=== PATIENT | female | born 1985 | race Caucasian/White ===

== ENCOUNTER → 2019-09-12 16:32 | Outpatient (CLI) | payer OTHER, SELFPAY | PROVIDERS: Visit Provider Physician Assistant | DX: R30.0 Dysuria (principal) | CPT/HCPCS: 87077; 87086; 87186 ==

== ENCOUNTER 2020-11-17 13:53 | Emergency (ER) | payer OTHER, SELFPAY ==
[2020-11-17] VITALS (8 sets, daily range): BP systolic 111–125; BP diastolic 72–81; PULSE 81–103; RESP 16–22; TEMP 36.5; O2SAT 99–100
--- NOTE | 2020-11-17 16:34 | DI.US.S_ITS ---
PROCEDURE: US PERIPH VENOUS LOW EXTREM LT INDICATIONS: NUMBNESS TECHNIQUE: Real-time imaging, as well as color and pulse Doppler interrogation, were performed of the lower extremity deep veins from the inguinal ligament to the popliteal fossa. COMPARISON: None. FINDINGS: The common femoral, femoral and popliteal veins are normally compressible, and free of intraluminal thrombus. Color and pulse Doppler demonstrate normal phasic intraluminal flow. There is normal augmentation response to distal compression maneuver. No soft tissue abnormalities identified in the area of numbness. IMPRESSION: Negative for deep venous thrombosis of the left lower extremity. No soft tissue abnormalities identified in the area of numbness. Dictated by: Corona Junior M.D. on 11/17/2020 at 18:03 Approved by: Corona Junior M.D. on 11/17/2020 at 18:04
--- NOTE | 2020-11-17 16:36 | DI.RAD.S_ITS ---
PROCEDURE: XR TIBIA FIBULA LT 2V INDICATIONS: LE numbness TECHNIQUE: 2 views of the tibia and fibula were acquired. COMPARISON: None. FINDINGS: Bones: No fractures or dislocations. No suspicious bony lesions. Soft tissues: No suspicious soft tissue calcifications or masses. IMPRESSION: Left tibia/fibula without acute radiographic abnormalities. Dictated by: Corona Junior M.D. on 11/17/2020 at 17:23 Approved by: Corona Junior M.D. on 11/17/2020 at 17:23
--- NOTE | 2020-11-17 16:36 | DI.RAD.S_ITS ---
PROCEDURE: XR ANKLE LT MIN 3V INDICATIONS: Le numbness TECHNIQUE: 3 views of the ankle were acquired. COMPARISON: None. FINDINGS: Bones: No fractures or dislocations. Ankle mortise is normally aligned. No suspicious bony lesions. Soft tissues: No tibiotalar joint effusion. Achilles tendon appears normal. IMPRESSION: Left ankle without acute radiographic abnormalities. Dictated by: Corona Junior M.D. on 11/17/2020 at 17:23 Approved by: Corona Junior M.D. on 11/17/2020 at 17:24
--- NOTE | 2020-11-30 18:51 | ED.LOWEXIN ---
HPI - Extremity Injury (Lower) <Izabel Araiza PA-C - Last Filed: 11/30/20 19:12> General Chief Complaint: Extremity Injury, Lower Stated Complaint: Numbness in left ankle/leg Time Seen by Provider: 11/17/20 16:08 Source: patient Mode of arrival: Ambulatory History of Present Illness HPI Narrative: 35-year-old female with no reported past medical history presents to the ED with 1 week of left ankle numbness. Patient denies trauma. Patient endorses spontaneous onset of left medial ankle numbness that has persisted for about a week. Patient denies weakness, inability to ambulate , back pain. Patient denies fever, chills, chest pain, shortness of breath, cough, nausea, vomiting, abdominal pain, dysuria, lightheadedness, dizziness, syncope. Patient denies very anal numbness, urinary hesitancy, urinary incontinence, stool incontinence. Patient denies IV drug use. Patient does endorse prior episodes of left-sided lower back pain. Related Data Home Medications Medication Instructions Recorded Confirmed estrogen patch 11/24/20 Allergies Allergy/AdvReac Type Severity Reaction Status Date / Time Penicillins Allergy Hives Verified 11/24/20 08:03 Review of Systems <Izabel Araiza PA-C - Last Filed: 11/30/20 19:12> Constitutional Constitutional: Denies chills, Denies fatigue, Denies fever(s), Denies frequent falls, Denies lethargy and Denies weakness Eyes Eyes: Denies change in vision, Denies eye discharge, Denies irritation and Denies loss of vision ENT Ears, Nose, Mouth, and Throat: Denies change in voice, Denies dizziness, Denies neck pain, Denies sore throat and Denies throat swelling Cardiovascular Cardiovascular: Denies chest pain, Denies irregular heart rhythm, Denies lightheadedness, Denies palpitations, Denies dyspnea, Denies dyspnea on exertion and Denies orthopnea Respiratory Respiratory: Denies cough, Denies dyspnea, Denies dyspnea on exertion and Denies wheezing Gastrointestinal Gastrointestinal: Denies abdominal pain, Denies change in bowel habits, Denies diarrhea, Denies nausea and Denies vomiting Musculoskeletal Musculoskeletal: Denies neck pain and Reports numbness Comments: left ankle numbness Integumentary/Breasts Skin/Breast: Denies pruritus, Denies erythema, Denies rash and Denies wounds Neurologic Neurologic: Denies behavioral changes, Denies confusion, Denies dizziness, Denies frequent falls, Denies loss of vision, Reports numbness and Denies weakness Psychiatric Psychiatric: Denies anxiety, Denies behavioral changes, Denies confusion, Denies depression, Denies homicidal ideation and Denies suicidal ideation Endocrine Endocrine: Denies fatigue, Denies flushing and Denies palpitations Hematologic/Lymphatic Hematologic/Lymphatic: Denies easy bruising Allergic/Immunologic Allergic/Immunologic: Denies urticaria, Denies throat swelling and Denies wheezing Patient History <Izabel Araiza PA-C - Last Filed: 11/30/20 19:12> Medical History UTI (urinary tract infection) Vaginal delivery Family History Father Hypertension Hyperlipidemia History of Graves' disease Mother Low TSH level Brother History of Graves' disease Grandfather History of heart disease Grandmother Diabetes mellitus Social History Smoking Status: Never smoker Smoking Status: Never smoker Exam <Izabel Araiza PA-C - Last Filed: 11/30/20 19:12> Initial Vital Signs Initial Vital Signs: Vital Signs Temperature 97.7 F 11/17/20 14:02 Pulse Rate 103 H 11/17/20 14:02 Respiratory Rate 22 11/17/20 14:02 Blood Pressure 123/81 11/17/20 14:02 Pulse Oximetry 99 11/17/20 14:02 Const General: cooperative HENMT Head: normocephalic and atraumatic Ears: external ears normal and TM's normal bilaterally Nose: external nose normal and No nasal discharge Face and sinus: sinuses nontender, face symmetric, no sinus tenderness and No dry mucous membranes Mouth: oral mucosae normal and moist mucous membranes Teeth and gingiva: dentition normal Throat: tonsils normal and uvula midline Eyes General: appearance normal, both eyes and all related structures Eyelids: eyelids normal Conjunctivae: conjunctivae normal Sclera: sclerae normal Pupils: PERRL EOM: EOM intact bilaterally Neck Neck: normal visual inspection, trachea midline, No lymphadenopathy, No midline deformity and No JVD Lymphatic: No lymphedema Chest Chest: normal inspection of the chest Resp Effort & Inspection: normal respiratory effort, able to speak in complete sentences, no respiratory distress and no use of accessory muscles Auscultation: clear to auscultation bilaterally, no rales, no rhonchi and no wheezes Cardio Rate: regular rate Rhythm: regular rhythm Heart Sounds: no click, no gallops, no murmurs and no rubs Pulses: normal peripheral pulses GI Inspection: non-distended Palpation: soft, no hepatosplenomegaly, No guarding, No pulsatile mass and No tender Auscultation: normal bowel sounds Back/Spine/Pelvis Back: No CVA tenderness Cervical Spine: cervical ROM normal and No pain with cervical ROM Thoracic/Lumbar Spine: thoracic and lumbar spine normal to inspection Other: no midline tenderness to palpation. Full range of motion of back, neck. Skin General: no rashes or lesions noted, No jaundice and No petechiae Neuro General: patient alert, patient oriented x3, gait normal and no focal motor deficits Speech: speech normal Other: PERRLA. CN 1-12 intact. Gait normal. No perianal numbness. Good flexion/ extension of bilateral 1st metatarsal. strength and sensation intact. Full range of motion. Negative pronator drift, negative on rapid alternating movements, negative [id number] Extrem General: normal to inspection, full ROM, no clubbing, cyanosis or edema, no pedal edema and no calf tenderness Psych Appearance: well kempt Mental Status: mental status grossly normal Attitude: cooperative Thought Content: normal and suicidality Judgment: judgment good <Jeniffer Segundo DO - Last Filed: 12/01/20 15:33> Initial Vital Signs Initial Vital Signs: Vital Signs Temperature 97.7 F 11/17/20 14:02 Pulse Rate 103 H 11/17/20 14:02 Respiratory Rate 22 11/17/20 14:02 Blood Pressure 123/81 11/17/20 14:02 Pulse Oximetry 99 11/17/20 14:02 MDM - Extremity Injury (Lower) <Izabel Araiza PA-C - Last Filed: 11/30/20 19:12> Medical Records Attestation: I reviewed the patient's medical records. Imaging Data US - DVT: Radiologist's Impression: PROCEDURE:? US PERIPH VENOUS LOW EXTREM LT ? INDICATIONS:? NUMBNESS ? TECHNIQUE:? Real-time imaging, as well as color and pulse Doppler interrogation, were performed of the lower extremity deep veins from the inguinal ligament to the popliteal fossa.? ? COMPARISON:? None. ? FINDINGS:? The common femoral, femoral and popliteal veins are normally compressible, and free of intraluminal thrombus.? Color and pulse Doppler demonstrate normal phasic intraluminal flow.? There is normal augmentation response to distal compression maneuver. ? No soft tissue abnormalities identified in the area of numbness. ? ? IMPRESSION:? Negative for deep venous thrombosis of the left lower extremity. ? No soft tissue abnormalities identified in the area of numbness. ? ? ? Dictated by: Corona Junior M.D. on 11/17/2020 at 18:03 ? ? Approved by: Corona Junior M.D. on 11/17/2020 at 18:04 ? Extremity x-ray #1: Radiologist's Impression: PROCEDURE: XR ANKLE LT MIN 3V INDICATIONS: Le numbness TECHNIQUE: 3 views of the ankle were acquired. COMPARISON: None. FINDINGS: Bones: No fractures or dislocations. Ankle mortise is normally aligned. No suspicious bony lesions. Soft tissues: No tibiotalar joint effusion. Achilles tendon appears normal. IMPRESSION: Left ankle without acute radiographic abnormalities. Dictated by: Corona Junior M.D. on 11/17/2020 at 17:23 Approved by: Corona Junior M.D. on 11/17/2020 at 17:24 Extremity x-ray #2: Radiologist's Impression: PROCEDURE: XR TIBIA FIBULA LT 2V INDICATIONS: LE numbness TECHNIQUE: 2 views of the tibia and fibula were acquired. COMPARISON: None. FINDINGS: Bones: No fractures or dislocations. No suspicious bony lesions. Soft tissues: No suspicious soft tissue calcifications or masses. IMPRESSION: Left tibia/fibula without acute radiographic abnormalities. Dictated by: Corona Junior M.D. on 11/17/2020 at 17:23 Approved by: Corona Junior M.D. on 11/17/2020 at 17:23 [facility] Narrative Medical decision making narrative: 35-year-old female with no reported past medical history presents to the ED with 1 week of left ankle numbness. Patient denies trauma. Patient endorses spontaneous onset of left medial ankle numbness that has persisted for about a week. Patient denies weakness, inability to ambulate , back pain. Physical exam reassuring. No gait abnormalities, good anal sphincter tone. no IV drug use, systemic symptoms, track díaz, unlikely epidural abscess. Given prior lower back pain, most likely sciatica. Will obtain xrays and US DVT of LLE to r/o DVT, fractures/dislocations. will discharge home with PCP follow-up, ED return precautions. Discharge Plan Departure Patient Disposition: Home Clinical Impression: Left leg numbness Instructions: DI for Numbness/Tingling Activity Restrictions/Additional Instructions: You were evaluated in the ED today for left lower leg numbness. Your ultrasound showed no evidence of a DVT/blood clot and you x-rays showed no evidence of fractures or dislocations. Please follow-up with your PCP as soon as possible for further evaluation. Return to the ED if you experience any weakness or worsening symptoms. Prescriptions: No Action (DME) estrogen patch 0 .ROUTE .MEDSUPPLY RF: 0 Referrals: Miscellaneous,Doctor, [Primary Care Provider] - <Jeniffer Segundo DO - Last Filed: 12/01/20 15:33> Cosign ED Attending Yonature Attestation: I was immediately available in the department for consultation. Documentation has been reviewed. I agree with assessment and plan.
== END 2020-11-17 18:28 | disposition home or self-care (01) ==
PROVIDERS: Emergency Provider Student in an Organized Health Care Education/Training Program
DX: R20.0 Anesthesia of skin (principal); M25.572 Pain in left ankle and joints of left foot
CPT/HCPCS: 73590; 73610; 93971; 99283; 99284

== ENCOUNTER → 2020-11-27 16:39 | Outpatient (CLI) | payer OTHER, SELFPAY ==
--- NOTE | 2020-11-27 16:41 | DI.MRI.S_ITS ---
PROCEDURE: MR HEAD/BRAIN WO/W CON INDICATIONS: NEW LEG NUBNESS TECHNIQUE: Noncontrast axial T1 spin echo, axial T2 fast spin echo, sagittal and axial FLAIR, coronal T2 fast spin echo, axial gradient echo, axial diffusion and ADC through the brain. After the administration of contrast, axial and coronal 3D VIBE or T1 spin echo with fat saturation through the brain. COMPARISON: None. FINDINGS: Image quality: Excellent. CSF Spaces: Basal cisterns are patent. No extra-axial fluid collections. Ventricles are normal in size and shape. Brain: No midline shift. No intracranial bleeds or masses. No abnormal intracranial enhancement. The brainstem appears normal. Diffusion-weighted images demonstrate no acute ischemic insults. No chronic ischemic insults. Normal intravascular flow voids are present. Skull and face: Calvarial marrow is normal in signal. Orbits appear normal. Sinuses: Sinuses and mastoids appear clear. IMPRESSION: 1. Negative evaluation of the brain. 2. No explanation for leg numbness. 3. No acute process. No recent infarct. Dictated by: Naomi Bingham M.D. on 11/28/2020 at 8:09 Approved by: Naomi Bingham M.D. on 11/28/2020 at 8:10
== END ==
PROVIDERS: PCP Family Medicine; Referring Provider Family Medicine; Visit Provider Family Medicine
DX: R20.0 Anesthesia of skin (principal); R29.2 Abnormal reflex
CPT/HCPCS: 70553

== ENCOUNTER → 2022-02-12 10:12 | Outpatient (CLI) | payer OTHER, SELFPAY ==
--- NOTE | 2022-02-12 | DI.US.S_ITS ---
PROCEDURE: US PELVIC COMPLETE INDICATIONS: RIGHT PELVIC PAIN TECHNIQUE: Real-time scanning was performed of the pelvic organs, with image documentation. Additional endovaginal scanning was necessary due to incomplete visualization of the adnexal and endometrial structures by transabdominal scanning. COMPARISON: None. FINDINGS: Uterus: Uterus is anteverted and normal in size at 9.7 x 4.9 x 6.7 cm. The myometrium is homogeneous. The endometrium measures 9.3 mm combined thickness. No fibroids noted Ovaries: The right ovary measures 1.5 x 2.0 x 1.6 cm, with a calculated ovarian volume of 2.4 cc. The left ovary measures 2.8 x 2.1 x 2.2 cm, with a calculated ovarian volume of 6.9 cc. The ovaries have a normal sonographic appearance. Less than 12 follicles can be seen in each ovary. No adnexal masses are seen. Other: No pathologic free abdominal or pelvic fluid. IMPRESSION: Unremarkable pelvic ultrasound. We strive to produce accurate, complete, and clear reports of imaging services. To assist us in improving patient care, this report was composed using standard report templates and voice recognition software. Therefore, it may contain abnormal punctuation, insertions and/or omissions. Occasional wrong-word or sound-alike substitutions may occur. Though we review the report and make efforts to correct it, we do recommend that the report be read carefully in proper context to recognize any text inaccuracies. Dictated by: Nathanael Martinez M.D. on 02/12/2022 at 14:18 Approved by: Nathanael Martinez M.D. on 02/12/2022 at 14:20
== END ==
PROVIDERS: PCP Family Medicine; Referring Provider Physician Assistant Medical; Visit Provider Physician Assistant Medical
DX: R10.31 Right lower quadrant pain (principal); R10.2 Pelvic and perineal pain
CPT/HCPCS: 76830; 76856; 93976

== ENCOUNTER → 2023-05-02 09:34 | Outpatient (CLI) | payer OTHER, SELFPAY ==
[2023-05-02 10:01] LABS: Appearance Urine UA CLEAR; Bilirubin Urine UA NEGATIVE (NEGATIVE); Color Urine UA ORANGE; Glucose Urine UA TRACE g/dL (Negative); Ketones Urine UA NEGATIVE (NEGATIVE); Leukocyte Esterase Urine UA TRACE (NEGATIVE); Nitrite Urine UA POSITIVE (Negative); Occult Blood Urine UA NEGATIVE (Negative); Protein Urine UA NEGATIVE (Negative); Specific Gravity Urine UA <=1.005 (1.000-1.035)
[2023-05-02 10:03] LABS: Urine Volume 10mL (spun)
[2023-05-02 10:05] LABS: Bacteria Urine Occasional (0-1); Culture Indicated Urine Specimen Cultured; RBC Urine None Seen (0-5/HPF); Squamous Epithelial Cell Urine None Seen (0-5/HPF); WBC Urine 0-1/HPF (0-5/HPF)
== END ==
PROVIDERS: PCP Family Medicine; Visit Provider Physician Assistant Surgical
DX: N39.0 Urinary tract infection, site not specified (principal)
CPT/HCPCS: 81001; 87086